=== PATIENT | male | born 1990 | race Caucasian/White ===

== ENCOUNTER 2017-11-19 13:42 | Emergency (ER) | payer OTHER ==
--- NOTE | 2017-11-19 14:11 | UC ---
Throat Pain/Nasal Shawn HPI - HPI Summary HPI Summary: Pt c/o sore throat, nasal congestion, chills X 1 week.pt states that throat pain is worsening since onset - History of Current Complaint Chief Complaint: UCGeneralIllness Stated Complaint: ST/SWOLLEN THROAT GLAND/EAR PAIN Time Seen by Provider: 11/19/17 13:55 Hx Obtained From: Patient Onset/Duration: Gradual Onset, Lasting Days, Still Present, Worse Since - onset Severity: Mild Cough: Nonproductive Associated Signs & Symptoms: Positive: Dysphagia, Hoarseness - Epiglottits Risk Factors Epiglottis Risk Factors: Negative - Allergies/Home Medications Allergies/Adverse Reactions: Allergies Allergy/AdvReac Type Severity Reaction Status Date / Time No Known Allergies Allergy Verified 11/19/17 13:59 PMH/Surg Hx/FS Hx/Imm Hx Previously Healthy: Yes - Surgical History Surgical History: Yes Surgery Procedure, Year, and Place: R ANKLE FX REPAIR - Family History Known Family History: Positive: Cardiac Disease - Social History Occupation: Employed Full-time Lives: With Family Alcohol Use: Weekly Alcohol Amount: few times a week Substance Use Type: Marijuana Substance Use Comment - Amount & Last Used: occasional use Smoking Status (MU): Current Some Day Smoker Have You Smoked in the Last Year: Yes - Immunization History Most Recent Influenza Vaccination: CURRENT 2016/2017 Review of Systems Constitutional: Chills Skin: Negative Eyes: Negative ENT: Sore Throat Respiratory: Cough Cardiovascular: Negative Gastrointestinal: Negative Genitourinary: Negative Motor: Negative Neurovascular: Negative Musculoskeletal: Negative Neurological: Negative Psychological: Negative Is Patient Immunocompromised?: No All Other Systems Reviewed And Are Negative: Yes Physical Exam Triage Information Reviewed: Yes Appearance: Well-Appearing Vital Signs: Initial Vital Signs Temp 98.0 F 11/19/17 13:51 Pulse 91 11/19/17 13:51 Resp 18 11/19/17 13:51 BP 123/88 11/19/17 13:51 Pulse Ox 97 11/19/17 13:51 Vital Signs Reviewed: Yes Eye Exam: Normal ENT Exam: Other ENT: Positive: Tonsillar swelling, Tonsillar exudate Dental Exam: Normal Neck exam: Normal Respiratory Exam: Normal Cardiovascular Exam: Normal Musculoskeletal Exam: Normal Neurological Exam: Normal Psychological Exam: Normal Skin Exam: Normal Throat Pain/Nasal Course/Dx - Course Course Of Treatment: positive rapid strep - Differential Dx/Diagnosis Differential Diagnosis/HQI/PQRI: Mononucleosis, Tonsillitis Provider Diagnoses: strep throat Discharge - Discharge Plan Condition: Stable Disposition: HOME Prescriptions: Penicillin VK 500 MG TAB(NF) [Penicillin VK 500 mg Tab] 500 mg PO Q8H #30 tab Patient Education Materials: Strep Throat (ED) Referrals: No Primary Care Phys,NOPCP [Primary Care Provider] - [facility] [place] [facility] [Outside]
== END 2017-11-19 14:40 | disposition home or self-care (01) ==
LOC: UCCORT 13:42
DX: J02.0 Streptococcal pharyngitis (principal); Z72.89 Other problems related to lifestyle; F13.90 Sedative, hypnotic, or anxiolytic use, unspecified, uncomplicated; Z72.0 Tobacco use
CPT/HCPCS: 87651; 99212; G0463